=== PATIENT | female | born 1970 | race Caucasian/White ===

== ENCOUNTER 2019-04-14 15:23 | Emergency (ER) | payer BC, OTHER, SELFPAY | END 2019-04-14 16:35 | disposition home or self-care (01) | LOC: MADERS 15:23 | DX: S00.83XA Contusion of other part of head, initial encounter (principal); V86.59XA Driver of other special all-terrain or other off-road motor vehicle injured in nontraffic accident, initial encounter | CPT/HCPCS: 99283 ==